=== PATIENT | male | born 1945 | race Caucasian/White ===

== ENCOUNTER 2017-03-16 05:34 | Inpatient (IN) | payer OTHER ==
[2017-03-09 11:21] LABS: BASOPHILS 0.3 %; BASOPHILS ABSOLUTE 0.02 10/3/uL (0.0-0.16); EOSINOPHILS 2.6 %; EOSINOPHILS ABSOLUTE 0.15 10/3/uL (0.0-0.53); HEMATOCRIT 38.1 % (40.0-51.0); IMMATURE GRANULOCYTES 0.2 %; IMMATURE GRANULOCYTES ABSOLUTE 0.01 10/3/uL (0.0-0.11); LYMPHOCYTES 27.1 %; LYMPHOCYTES ABSOLUTE 1.56 10/3/uL (0.67-4.30); MEAN CORPUS HGB CONC 34.1 g/dL (32.0-36.0); MEAN CORPUSCULAR HEMOGLOB 31.4 pg (26.0-34.0); MEAN PLATELET VOLUME 11.7 fL (9.2-13.0); MONOCYTES 10.6 %; MONOCYTES ABSOLUTE 0.61 10/3/uL (0.21-1.20); NEUTROPHILS 59.2 %; NEUTROPHILS ABSOLUTE 3.41 10/3/uL (2.02-8.40); PLATELET COUNT 153 10/3/uL (150-400); RBC DISTRIBUTION WIDTH 13.4 % (12.0-16.0); RED CELL COUNT 4.14 10/6/uL (4.7-6.1); WHITE BLOOD CELLS 5.8 10/3/uL (4.5-10.5)
[2017-03-09 11:22] LABS: MANUAL DIFF NO %
[2017-03-09 11:29] LABS: INTERNATIONAL NORMAL RATI 1.1 UNITS (-); PARTIAL THROMBO TIME 29.4 SEC (22.5-37.2); PROTIME (NOT ORD) 14.4 SEC (12.0-14.5)
[2017-03-09 11:35] LABS: BUN (BLOOD UREA NITROGEN) 23 MG/DL (6-23); CALCIUM, SERUM 8.9 MG/DL (8.5-10.4); CHLORIDE, SERUM 109 MMOL/L (96-112); CO2 (CARBON DIOXIDE) 25 MMOL/L (24-34); CREATININE 0.98 MG/DL (0.70-1.30); GFR AFRICAN AMERICAN 90 ML/MIN (>=60); GFR NON AFRICAN AMERICAN 78 ML/MIN (>=60); GLUCOSE, SERUM 91 MG/DL (60-99); POTASSIUM, SERUM 4.8 MMOL/L (3.5-5.3); SODIUM, SERUM 141 MMOL/L (135-148)
[2017-03-09 11:49] LABS: ASCORBIC ACID (UR NOT ORDER) 40 (NEG); BILIRUBIN, URINE NEGATIVE (NEG); KETONE, URINE NEGATIVE (NEG); LEUKOCYTE ESTERASE(NOT OR NEG (NEG); WBC (NOT ORDERED) (RFLEX) < 1 (0-5)
--- NOTE | ~2017-03-16 | DS ---
Discharge Summary [facility] [address] [place]. [address] NAME: JOSELUIS CHAUDHRY : 47 STATUS : DIS IN PAT#: [id number] AGE: 71 ADM/REG DATE : 03/16/17 MR#: [id number] REPORT SERV DATE: 03/20/17 DICTATED BY: HARISH TEIXEIRA DATE: 03/19/17 REPORT STATUS : Draft TRANSCRIBED BY: MODL DATE: 03/19/17 ADMISSION DATE: 03/16/2017 DISCHARGE DATE: 03/19/2017 DIAGNOSES: 1. Adenocarcinoma of the prostate. 2. Postoperative acute kidney injury. PROCEDURES IN THIS HOSPITALIZATION: Laparoscopic robot-assisted radical prostatectomy and closure of iatrogenic enterotomy (serosal tear). For complete history of present illness, please see dictated H and P. HOSPITAL COURSE: The patient underwent the above-mentioned procedure on the morning of 03/16/2017. Postoperatively, he had a Teixeira catheter draining his bladder and a Noah drain in the prevesical space. He was oliguric and challenged with diuretics. He had low urine output for the first 18 hours after surgery. 18 hours after surgery, his serum creatinine had risen from a preoperative level of 0.9 to 2.0. A renal ultrasound and CT scan of the abdomen and pelvis were obtained. There was no evidence of any obstruction or extravasation. He was further challenged with Lasix and fluids and his urine output increased significantly and his creatinine improved. Additionally, Nephrology consult was obtained and they managed his blood pressure. We essentially held his blood pressure medications and allowed him to become a little more hypertensive, which helped profuse the kidneys and re-establish blood flow. On the day of discharge, he had had a good 2.3 L urine output and his serum creatinine was back down to 1.3. The patient had an early postoperative urine leak. The day after surgery, he had greater than 100 mL of fluid draining out of his Noah drain. The fluid was collected and analyzed and had a concentration of creatinine consistent with urine. Over the next 24-48 hours, the drain output virtually ceased. On the day of discharge, there had been 10 mL of drain output in the last eight hours. The drain was removed. He was discharged home with his Teixeira catheter. Discharge medications are the same medications when he came to the hospital. I also started him on Levaquin 750 mg p.o. daily for a low-grade temperature postoperatively. He was ambulating and had bowel movements prior to discharge. His followup will be in eight days with Dr. Teixeira for catheter removal and pathology discussion. PF/ANDREY Harish Teixeira M.D. / [id number] CC: Harish Teixeira M.D. Discharge Summary [address] [address] NAME: JOSELUIS CHAUDHRY : 47 STATUS : DIS IN PAT#: [id number] AGE: 71 ADM/REG DATE : 03/16/17 MR#: [id number] REPORT SERV DATE: 03/20/17 DICTATED BY: HARISH TEIXEIRA DATE: 03/19/17 REPORT STATUS : Draft TRANSCRIBED BY: ANDREY DATE: 03/19/17 Maxwell Mondragon M.D.
--- NOTE | ~2017-03-16 | OP ---
Record Of Operation [facility] [address] [place]. [address] NAME: JOSELUIS HUFF : 47 STATUS : ADM IN PAT#: [id number] AGE: 71 ADM/REG DATE : 03/16/17 MR#: [id number] REPORT SERV DATE: 03/17/17 DICTATED BY: HARISH TEIXEIRA DATE: 03/16/17 REPORT STATUS : Draft TRANSCRIBED BY: MODL DATE: 03/16/17 DATE OF PROCEDURE: 03/16/2017 PREOPERATIVE DIAGNOSIS: Adenocarcinoma of the prostate, clinical stage T1c, Millington score 3+4=7, maximum PSA 5.5. POSTOPERATIVE DIAGNOSIS: Adenocarcinoma of the prostate, clinical stage T1c, Millington score 3+4=7, maximum PSA 5.5 and iatrogenic enterotomy (serosa only). PROCEDURES: 1. Closure of iatrogenic enterotomy. 2. Laparoscopic robot-assisted radical prostatectomy. SURGEON: Harish Teixeira M.D. ELECTRONIC WARFARE OFFICER: Talat Huang. ANESTHESIA: General and local. BLOOD LOSS: Estimated 400 mL. FLUID REPLACEMENT: 3 L of crystalloid. DRAINS: An 18-Stateless Teixeira catheter per urethra, 12 mL of sterile water inflating catheter balloon and a 15 mm Noah drain in prevesical space. INDICATION: Mr. Huff is a 71-year-old male, diagnosed with adenocarcinoma of the prostate. Different treatment options regarding management of prostate cancer were proposed to the patient. He decided to proceed with laparoscopic robot-assisted radical prostatectomy. COMPLICATION: Serosal tear on the small bowel upon entering the abdomen (previous exploratory laparotomy scar). TECHNIQUE: The patient was identified, brought to the operating room, administered general anesthetic agent by the Anesthesia Service and intubated. He was positioned into the dorsal lithotomy position, appropriately padded, and secured to the table. The abdomen had previously been clipped. The entire abdomen, penis, groin, scrotum, and perineum were prepped and draped in the usual sterile fashion. A 16-Stateless Teixeira catheter was passed into the bladder and left for drainage. A 3 cm skin incision was made above the umbilicus and carried down through the subcutaneous tissue to expose the rectus fascia. Holding sutures were placed in the rectus fascia. The fascia was elevated and incised transversely. The underlying peritoneum was identified and grasped with hemostats and opened sharply. This was when I noted that piece of small bowel was stuck underneath the peritoneum and a serosal tear measuring approximately a 0.5 cm was made. The mucosa was identified and was intact. There was no leakage. Record Of Operation [facility] [address] [place]. [address] NAME: JOSELUIS HUFF : 46 STATUS : ADM IN PAT#: [id number] AGE: 71 ADM/REG DATE : 03/16/17 MR#: [id number] REPORT SERV DATE: 03/17/17 DICTATED BY: HARISH TEIXEIRA DATE: 03/16/17 REPORT STATUS : Draft TRANSCRIBED BY: MODL DATE: 03/16/17 I used [place] clamps, isolated the small bowel segment and the wound and used 3-0 silk Lembert sutures to cover the serosal defect. I then put the bowel back into its anatomic location and placed a balloon trocar into the peritoneum. Pneumoperitoneum was created by insufflating carbon dioxide. The abdominal pressure raised to 15 mmHg and held there through the entire case until otherwise specified. The patient was placed in steep Trendelenburg. The patient had some adhesions between the omentum, small bowel, and the left lower quadrant internal ring, I took these down sharply. There was also some adhesions between the sigmoid colon and left pelvic sidewall, which I took down sharply. Once I had these cleared, three robot arm ports and two head start assistant teacher ports were placed under direct laparoscopic vision. Da Josh robot was brought to the table and mated to the ports. I took down the adhesions as I just stated. I then opened the cul-de-sac exposing the seminal structures. The left and right vasa deferentia were isolated and clipped proximally, transected distally. The seminal vesicles were dissected out. Denonvilliers fascia was opened sharply and the rectum was swept off the undersurface of the prostate out to the apex. I divided the median umbilical ligaments and urachus near the umbilicus. I swept the bladder off the anterior abdominal wall after opening the peritoneum just lateral to the median umbilical ligaments on each side. I carried this down to expose all the way down to the prostate. The fat overlying the prostate gland was taken off with sharp dissection. Quite a bit of oozing and bleeding was noted by this point of the case. I oversewed many of the blood vessels using 3-0 PDS. I then opened the endopelvic fascia sharply at the prostatovesical junction, carried it out distally through the puboprostatic ligaments. The dorsal venous complex was isolated and secured with laparoscopic YUNIOR stapling device. I then oversewed the dorsal venous complex with 3-0 PDS several times. Also, put a back bleeding suture onto the bladder. I began to mobilize the neurovascular bundles off the prostate. They were quite sticky and adherent. I had difficulty mobilizing him, so I sacrificed a part of the neurovascular bundles. I then developed a plane between the bladder neck and the prostate. I was able to well preserve the bladder neck taking the lateral attachment off the bladder sharply. I then divided the bladder neck and backing up the Teixeira catheter. I then grasped the Teixeira catheter and elevated the prostate. I carried the dissection down to expose the previously dissected out seminal structures. The posterior pedicles were secured with locking clips and divided. I sacrificed a part of the neurovascular bundles all the way out to the apices bilaterally. The last attachments of the striated sphincter were taken off the apex of the prostate sharply. The urethra was divided sharply and the posterior striated sphincter was divided. The specimen was inspected, appeared intact, placed into a specimen retrieval bag, and held for later retrieval. At this point, I lowered the abdominal pressure down to 7 mmHg. I had quite a bit of oversewing to do, the left posterior pedicle, the left distal neurovascular bundle. The left side of the anterior bladder wall had bleeding coming from. Also, the undersurface of the symphysis pubis on the left side had bleeding. I also oversewed some of the right Record Of Operation [facility] [address] [place]. [address] NAME: JOSELUIS HUFFE : 47 STATUS : ADM IN PAT#: [id number] AGE: 71 ADM/REG DATE : 03/16/17 MR#: [id number] REPORT SERV DATE: 03/17/17 DICTATED BY: HARISH TEIXEIRA DATE: 03/16/17 REPORT STATUS : Draft TRANSCRIBED BY: MODL DATE: 03/16/17 anterior bladder. Fastidious hemostasis was achieved. I performed a posterior reconstruction in two layers using 3-0 V-Loc. I then did a modified van Velthoven vesicourethral anastomosis. When the anastomosis was completed, I inserted a new 18-Stateless Teixeira catheter. I filled the bladder with 240 mL of saline. It held without extravasation. The bladder was then drained. The instrument was taken out of the robotic arm port and a 15-mm Noah drain was placed through that port. I left a piece of Surgicel along the inferior border of the left symphysis pubis. The port was removed. The drain was sutured to skin with 2 Prolene. I undocked the da Josh robot. I transferred the string in specimen bag and out through the umbilical port. The head start assistant teacher 12-mm port was removed and the fascia there was closed with Jah-Angelia endoscopic closure system. I then removed all ports under low pressure. No port site bleeding was noted. The patient was taken out of Trendelenburg. The transverse incision of the fascia above the umbilicus was extended in 2 cm each direction. I then delivered the specimen out through the wound. I closed the fascia with [id number] 0 Vicryl sutures. The subcutaneous tissue of all ports was irrigated and closed with 3-0 Vicryl. The skin of all ports closed with 4-0 Monocryl. Dressings were applied. The catheter was secured and the patient was awakened, taken to the recovery unit in stable and satisfactory condition. PF/ANDREY Harish Teixeira M.D. / [id number] CC: Harish Teixeira M.D.
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
--- NOTE | ~2017-03-16 | CN ---
Consultation Report [facility] [address] [place]. [address] NAME: JOSELUIS CHAUDHRY : 47 STATUS : ADM IN PAT#: [id number] AGE: 71 ADM/REG DATE : 03/16/17 MR#: [id number] REPORT SERV DATE: 03/17/17 DICTATED BY: KENDRICK FELICIANO DATE: 03/17/17 REPORT STATUS : Draft TRANSCRIBED BY: MODL DATE: 03/17/17 NEPHROLOGY CONSULTATION NOTE DATE OF CONSULTATION: HISTORY OF PRESENT ILLNESS: Mr. Calvillo is a 71-year-old white male, admitted for a robotic assisted laparoscopic prostatectomy for prostatic cancer. It was done yesterday 03/16/2017. Today, it was noted that he was oliguric and elevated creatinine. I was consulted for assistance in management of acute kidney failure postop. PAST MEDICAL HISTORY: Obstructive sleep apnea on CPAP since 2004, chronic hypertension on medicines since 2009, chronic obesity with a BMI of 40, prostatic cancer diagnosed, first symptoms were in August 2016, biopsy in November of this year, and now surgery yesterday, also had some lumbar disk surgery x1 in 1984. HOME MEDICATIONS: ARB, hydrochlorothiazide, and hydrocodone. ALLERGIES: HE IS ALLERGIC TO PENICILLIN THAT CAUSES SWELLING AND GAS-X CAUSES A RASH. SOCIAL HISTORY: Chews tobacco since teenage years, over 25 years, and rare alcohol use. He is . His is at bedside. FAMILY HISTORY: Positive for prostate cancer in his father. PHYSICAL EXAMINATION: VITAL SIGNS: Blood pressure 131/71, heart rate 81, respirations 18, temp 97.8. GENERAL: He complains of some pain in right lower quadrant, more so in than left lower quadrant, but very tender to the touch, and only thing pain medicines relieve it, but right before the next dose is due it comes back. He is alert and oriented x3, cooperative, in no acute distress. He has been up walking in the halls quite a bit, his nurse agrees with that, but the pain returns if he is not on his pain medications regularly. HEENT: Unremarkable. NECK: Supple. CHEST: Clear. CARDIOVASCULAR: Without murmur, gallops, or rubs. ABDOMEN: Obese, soft, tender only about a third of the wave in the line between his umbilicus and his right groin. Extremely tender to touch there. No rebound. Tender also in the left lower quadrant, but not as severe as the right. No palpable mass there, but it does appear to have a palpable bladder. No edema. NEUROLOGIC: Nonfocal neurological exam. SKIN: No skin rash. LYMPHATIC: No lymphadenopathy, and as mentioned above oriented x3, and cooperative. LABORATORY DATA: Shows sodium 133, potassium 5.3, chloride 101, CO2 24, BUN of 30, Consultation Report [facility] [address] [place]. [address] NAME: JOSELUIS CHAUDHRY : 47 STATUS : ADM IN PAT#: [id number] AGE: 71 ADM/REG DATE : 03/16/17 MR#: [id number] REPORT SERV DATE: 03/17/17 DICTATED BY: KENDRICK FELICIANO DATE: 03/17/17 REPORT STATUS : Draft TRANSCRIBED BY: ANDREY DATE: 03/17/17 creatinine 2.08, preop on 03/09/2017, his creatinine was 0.98. Blood sugar 122. Victorino- Gudino drain with fluid was sent off for creatinine value and it was 109, consistent with urine levels, not blood levels. Calcium 7.8, magnesium 1.8. White count of 5.8, hemoglobin 10, hematocrit 29, platelet count 153, prior to surgery on 03/09/2017, repeat CBC ordered for today. Ultrasound of kidney shows no hydronephrosis. Benign right kidney cyst. ASSESSMENT: 1. Acute kidney injury. Acts as if he has a urine leak that is draining now through his Victorino-Gudino not through his Chin. Repeat lab works are pending. Worry about potassium rising, he has been drinking a lot a water several liters, but has not put out, but 400 mL and most of it through the Victorino-Gudino. CT scan of the abdomen and pelvis has been ordered with no contrast and a call placed to Dr. Chin to discussed the case. 2. Hypertension, I have held ARB and diuretics for now. 3. Obesity, obstructive sleep apnea, and wears a CPAP regularly, as he has for several years. 4. Prostatic cancer, status post prostatectomy yesterday. 5. History of lumbar disk disease. Denies any nonsteroidal anti-inflammatory use. PLAN: Stat CT scan of his abdomen. We have repeated lab work to see where his kidney function is now as opposed to 0430 hours this morning, and I put a call out to Dr. Chin, who discussed the case with me this morning, but I had not seen the patient at that time. DEION/ANDREY Kendrick Feliciano M.D. / [id number] CC: Patricio Sorto MARK KEITH
[~2017-03-16 05:34] MED LIST: BENICAR HCT1 TA1 PO; NORCO1 TAB PO
[2017-03-17 05:41] LABS: HEMATOCRIT 29.1 % (40.0-51.0)
[2017-03-17 05:53] LABS: CHLORIDE, SERUM 101 MMOL/L (96-112); CO2 (CARBON DIOXIDE) 24 MMOL/L (24-34); POTASSIUM, SERUM 5.3 MMOL/L (3.5-5.3)
[2017-03-17 05:55] LABS: BUN (BLOOD UREA NITROGEN) 30 MG/DL (6-23); CALCIUM, SERUM 7.8 MG/DL (8.5-10.4); CREATININE 2.08 MG/DL (0.70-1.30); GFR AFRICAN AMERICAN 36 ML/MIN (>=60); GFR NON AFRICAN AMERICAN 31 ML/MIN (>=60); GLUCOSE, SERUM 122 MG/DL (60-99); SODIUM, SERUM 133 MMOL/L (135-148)
[2017-03-17 15:56] LABS: BASOPHILS 0.1 %; BASOPHILS ABSOLUTE 0.01 10/3/uL (0.0-0.16); EOSINOPHILS 0.1 %; EOSINOPHILS ABSOLUTE 0.02 10/3/uL (0.0-0.53); HEMATOCRIT 28.8 % (40.0-51.0); HEMOGLOBIN 10.1 g/dL (13.6-17.8); IMMATURE GRANULOCYTES 0.3 %; IMMATURE GRANULOCYTES ABSOLUTE 0.05 10/3/uL (0.0-0.11); LYMPHOCYTES 9.1 %; LYMPHOCYTES ABSOLUTE 1.37 10/3/uL (0.67-4.30); MEAN CORPUS HGB CONC 35.1 g/dL (32.0-36.0); MEAN CORPUSCULAR VOLUME 91.1 fL (80-100); MEAN PLATELET VOLUME 11.1 fL (9.2-13.0); MONOCYTES 11.7 %; MONOCYTES ABSOLUTE 1.75 10/3/uL (0.21-1.20); NEUTROPHILS 78.7 %; NEUTROPHILS ABSOLUTE 11.81 10/3/uL (2.02-8.40); PLATELET COUNT 145 10/3/uL (150-400); RBC DISTRIBUTION WIDTH 13.3 % (12.0-16.0)
[2017-03-17 15:57] LABS: MANUAL DIFF NO %; RED CELL COUNT 3.16 10/6/uL (4.7-6.1)
[2017-03-17 16:10] LABS: ALBUMIN 3.3 G/DL (3.5-5.0); CALCIUM, SERUM 7.8 MG/DL (8.5-10.4); CHLORIDE, SERUM 98 MMOL/L (96-112); CO2 (CARBON DIOXIDE) 24 MMOL/L (24-34); CREATININE 1.99 MG/DL (0.70-1.30); GFR AFRICAN AMERICAN 38 ML/MIN (>=60); GFR NON AFRICAN AMERICAN 33 ML/MIN (>=60); GLUCOSE, SERUM 116 MG/DL (60-99); PHOSPHORUS, SERUM 2.5 MG/DL (2.5-4.5); POTASSIUM, SERUM 4.6 MMOL/L (3.5-5.3); SODIUM, SERUM 129 MMOL/L (135-148)
[2017-03-17 16:12] LABS: BUN (BLOOD UREA NITROGEN) 35 MG/DL (6-23)
[2017-03-18 06:00] LABS: BASOPHILS 0.1 %; BASOPHILS ABSOLUTE 0.01 10/3/uL (0.0-0.16); EOSINOPHILS 0.3 %; EOSINOPHILS ABSOLUTE 0.04 10/3/uL (0.0-0.53); HEMATOCRIT 29.1 % (40.0-51.0); HEMOGLOBIN 10.1 g/dL (13.6-17.8); IMMATURE GRANULOCYTES 0.2 %; IMMATURE GRANULOCYTES ABSOLUTE 0.03 10/3/uL (0.0-0.11); LYMPHOCYTES 10.5 %; LYMPHOCYTES ABSOLUTE 1.26 10/3/uL (0.67-4.30); MEAN CORPUS HGB CONC 34.7 g/dL (32.0-36.0); MEAN CORPUSCULAR HEMOGLOB 31.9 pg (26.0-34.0); MEAN CORPUSCULAR VOLUME 91.8 fL (80-100); MEAN PLATELET VOLUME 11.1 fL (9.2-13.0); MONOCYTES 10.6 %; MONOCYTES ABSOLUTE 1.28 10/3/uL (0.21-1.20); NEUTROPHILS 78.3 %; NEUTROPHILS ABSOLUTE 9.41 10/3/uL (2.02-8.40); PLATELET COUNT 143 10/3/uL (150-400); RBC DISTRIBUTION WIDTH 13.1 % (12.0-16.0); RED CELL COUNT 3.17 10/6/uL (4.7-6.1)
[2017-03-18 06:03] LABS: MANUAL DIFF NO %
[2017-03-18 06:07] LABS: INTERNATIONAL NORMAL RATI 1.3 UNITS (-); PARTIAL THROMBO TIME 30.9 SEC (22.5-37.2); PROTIME (NOT ORD) 15.6 SEC (12.0-14.5)
[2017-03-18 06:13] LABS: A/G RATIO 1.1 (0.7-1.9); ALBUMIN 3.4 G/DL (3.5-5.0); ALKALINE PHOSPHATASE 53 U/L (45-117); BUN (BLOOD UREA NITROGEN) 35 MG/DL (6-23); CALCIUM, SERUM 8.3 MG/DL (8.5-10.4); CHLORIDE, SERUM 97 MMOL/L (96-112); CREATININE 1.73 MG/DL (0.70-1.30); GFR AFRICAN AMERICAN 45 ML/MIN (>=60); GFR NON AFRICAN AMERICAN 39 ML/MIN (>=60); GLOBULIN 3.2 G/DL (2.5-4.1); GLUCOSE, SERUM 111 MG/DL (60-99); POTASSIUM, SERUM 4.8 MMOL/L (3.5-5.3); SGOT(AST) 64 U/L (5-40); SGPT(ALT) 31 U/L (5-65); SODIUM, SERUM 131 MMOL/L (135-148); TOTAL PROTEIN 6.6 G/DL (6.0-8.5)
[2017-03-18 06:14] LABS: CO2 (CARBON DIOXIDE) 29 MMOL/L (24-34)
[2017-03-19 05:58] LABS: HEMATOCRIT 27.2 % (40.0-51.0); HEMOGLOBIN 9.5 g/dL (13.6-17.8)
[2017-03-19 06:11] LABS: CALCIUM, SERUM 8.1 MG/DL (8.5-10.4); CHLORIDE, SERUM 100 MMOL/L (96-112); CO2 (CARBON DIOXIDE) 29 MMOL/L (24-34); CREATININE 1.33 MG/DL (0.70-1.30); GFR AFRICAN AMERICAN 62 ML/MIN (>=60); GFR NON AFRICAN AMERICAN 54 ML/MIN (>=60); GLUCOSE, SERUM 111 MG/DL (60-99); PHOSPHORUS, SERUM 2.2 MG/DL (2.5-4.5); POTASSIUM, SERUM 4.5 MMOL/L (3.5-5.3); SODIUM, SERUM 135 MMOL/L (135-148)
[2017-03-19 06:14] LABS: BUN (BLOOD UREA NITROGEN) 29 MG/DL (6-23)
[2017-03-19] MEDS ORDERED: LEVAQUIN750 MG PO (07:46)
== END 2017-03-19 15:15 | disposition home or self-care (01) | DRG 707 ==
LOC: SDC/OF 05:34 → PACU 13:43 → 4SO 16:28
PROVIDERS: Internal Medicine Nephrology; Urology
PROC: 0VT04ZZ Resection of Prostate, Percutaneous Endoscopic Approach (ICD-10-PCS; principal; 2017-03-16 06:30)
PROC: 8E0W4CZ Robotic Assisted Procedure of Trunk Region, Percutaneous Endoscopic Approach (ICD-10-PCS; principal; 2017-03-16 06:30)
PROC: 0VT34ZZ Resection of Bilateral Seminal Vesicles, Percutaneous Endoscopic Approach (ICD-10-PCS; principal; 2017-03-16 06:30)
PROC: 0VTQ4ZZ Resection of Bilateral Vas Deferens, Percutaneous Endoscopic Approach (ICD-10-PCS; principal; 2017-03-16 06:30)
DX: C61 Malignant neoplasm of prostate (principal); N17.0 Acute kidney failure with tubular necrosis; Z68.41 Body mass index [BMI] 40.0-44.9, adult; I10 Essential (primary) hypertension; M51.36 Other intervertebral disc degeneration, lumbar region; G47.33 Obstructive sleep apnea (adult) (pediatric); Z96.653 Presence of artificial knee joint, bilateral; Z88.0 Allergy status to penicillin; Z88.8 Allergy status to other drugs, medicaments and biological substances; Z72.0 Tobacco use; N99.0 Postprocedural (acute) (chronic) kidney failure; E66.9 Obesity, unspecified
CPT/HCPCS: 74176; 76775; 80048; 80053; 80069; 81001; 82570; 82962; 83735; 85014; 85018; 85025; 85610; 85730; 88309; 88342; 88344; 93005; A9270-GY; J1170; J1940; J2250; J2270; J2370; J2405; J2710; J3010; J3370